=== PATIENT | female | born 1995 | race African-American/Black ===

== ENCOUNTER 2020-01-26 14:14 | Emergency (ER) | payer MEDICAID, OTHER ==
[~2020-01-26] VITALS: Ht 162.6 cm; Wt 2.4 kg
[2020-01-26 14:34] VITALS: BP 109/74
--- NOTE | 2020-01-26 14:51 | NUR ---
ED Nurse Note: Due to the Right knee injury 1.5 years ago, pt. had mechanical fall on 01/12/20. Pt c/o right knee pain and swelling right lower leg.
[2020-01-26] MEDS ORDERED: Ketorolac 30mg Inj IM ONE (15:00)
--- NOTE | 2020-01-26 16:09 | Diagnostic Imaging Report ---
EXAM: XR Right Ankle Complete, 3 or More Views CLINICAL HISTORY: TRAUMA TECHNIQUE: Frontal, lateral and oblique views of the right ankle. COMPARISON: None FINDINGS: Bones/joints: Nondisplaced fracture of the distal right fibula. Ankle mortise is intact. No dislocation. Ankle joint effusion. Soft tissues: Soft tissue swelling. IMPRESSION: Nondisplaced fracture of the distal right fibula.
--- NOTE | 2020-01-26 16:10 | Emergency Room Report ---
History of Present Illness General Chief Complaint: Lower Extremity Injury Source: Patient Present Illness HPI 25-year-old obese female with no significant past medical history here complaining of right ankle pain after a fall that occurred on January 12, 2020. Patient reports that she twisted her ankle and fell on her right ankle has been hurting since. Rates the pain 10 out of 10 without radiation. Denies any tingling or numbness. Reports that she was using her crutches to ambulate however the pain started getting worse today. Has not yet seen her primary doctor. Swelling is noted with ecchymosis. Complains of posterior ankle pain. Denies all other injuries at this time. Patient reports that she has been applying weight to it every day. Denies chest pain, shortness of breath, calf tenderness, pleuritic chest pain, headache and dizziness. Has been taking Aleve with minimal relief. Denies at this time. Allergies: Coded Allergies: No Known Allergies (Unverified , 01/26/20) COVID-19 Screening Contact w/high risk pt: No Recent Travel to affected area: No Experienced COVID-19 symptoms?: No Patient History Past Medical History: see triage record Past Surgical History: none Pertinent Family History: none Now: No Immunizations: UTD Reviewed Nursing Documentation: PMH: Agreed; PSxH: Agreed Nursing Documentation-PMH Past Medical History: No Stated History Review of Systems All Other Systems: negative except mentioned in HPI Physical Exam Vital Signs Date Time Temp Pulse Resp B/P (MAP) Pulse Ox O2 Delivery O2 Flow Rate FiO2 01/26/20 14:34 98.6 108 18 109/74 (86) 98 Room Air Sp02 EP Interpretation: reviewed, normal General Appearance: alert, GCS 15, non-toxic, mild distress, obese Head: normocephalic, atraumatic Eyes: bilateral eye normal inspection, bilateral eye PERRL ENT: hearing grossly normal, normal pharynx, no angioedema, normal voice Neck: full range of motion, supple/symm/no masses Respiratory: chest non-tender, lungs clear, normal breath sounds, speaking full sentences Cardiovascular #1: regular rate, rhythm, no edema Cardiovascular #2: 2+ dorsalis pedis (R), 2+ dorsalis pedis (L) Gastrointestinal: normal bowel sounds, non tender, soft, non-distended, no guarding, no rebound Rectal: deferred Genitourinary: no CVA tenderness Musculoskeletal: back normal, no calf tenderness, tender - Right posterior ankle with swelling noted, questionable Blevins sign Neurologic: alert, motor strength/tone normal, oriented x3, sensory intact, responsive, speech normal Psychiatric: judgement/insight normal, memory normal, mood/affect normal, no suicidal/homicidal ideation Skin: no rash Lymphatic: no adenopathy Procedures Splinting Splinting : Consent: Verbal Location: right ankle Splint: poserior short Pre-Proc Neuro Vasc Exam: normal Post-Proc Neuro Vasc Exam: normal Patient Tolerated: Well Complications: None Progress Crutches were provided Medical Decision Making PA Attestation All diagnoses and treatment plans were reviewed and discussed with my supervising physician Dr. Leon Diagnostic Impression: Primary Impression: Closed fracture of right distal fibula Additional Impression: Achilles tendon injury ER Course 25-year-old obese female with no significant past medical history here complaining of right ankle pain after a fall that occurred on January 12, 2020. Patient reports that she twisted her ankle and fell on her right ankle has been hurting since. Rates the pain 10 out of 10 without radiation. Denies any tingling or numbness. Reports that she was using her crutches to ambulate however the pain started getting worse today. Has not yet seen her primary doctor. Swelling is noted with ecchymosis. Complains of posterior ankle pain. Denies all other injuries at this time. Patient reports that she has been applying weight to it every day. Denies chest pain, shortness of breath, calf tenderness, pleuritic chest pain, headache and dizziness. Has been taking Aleve with minimal relief. Denies at this time. Ddx considered but are not limited to: ankle sprain, ankle strain, ankle fracture, ankle contusion Vital signs: are WNL, pt. is afebrile H&PE are most consistent with: Closed fracture of right distal fibula, possible Achilles tendon injury ORDERS: ankle x-ray, ibuprofen, tyleno #3 ED INTERVENTIONS: toradol IM DISCHARGE: At this time pt. is stable for d/c to home. Will provide printed patient care instructions, and any necessary prescriptions. Care plan and follow up instructions have been discussed with the patient prior to discharge. Patient to follow-up with claims account specialist, possible MRI of ankle may be needed, if worsening symptoms return to the emergency room. Keep splint on until seen by claims account specialist however if extreme pain and pressure underneath the splint with color changes of skin take the splint off and return to the emergency room to avoid compartment syndrome Other X-Ray Diagnostic Results Other X-Ray Diagnostic Results : X-Ray ordered: Right ankle x-ray # of Views/Limited Vs Complete: 3 View Indication: Pain EP Interpretation: Yes PA Xray: Interpretation reviewed, by supervising MD, and agrees with findings. Interpretation: other - Closed fracture right distal fibula Impression: Other - Closed fracture of right distal fibula Electronically Signed by: Charles SIFUENTES Scribe Text IMPRESSION: Nondisplaced fracture of the distal right fibula. Last Vital Signs Date Time Temp Pulse Resp B/P (MAP) Pulse Ox O2 Delivery O2 Flow Rate FiO2 01/26/20 14:34 98.6 108 18 109/74 (86) 98 Room Air Disposition: HOME, SELF-CARE Condition: Stable Scripts Ibuprofen (Ibu) 800 Mg Tablet 800 MG PO TID, #30 TAB Prov: Charles Hernandes 01/26/20 Acetaminophen With Codeine (T#3) (TYLENOL #3 TAB*) Y Tab 1 TAB ORAL Q8HR PRN for For Pain for 3 Days, #10 TAB Prov: Charles Hernandes 01/26/20 Patient Instructions: Ankle Fracture With Rehab-SportsMed Additional Instructions: Take medication as been prescribed, follow-up with claims account specialist, also MRI may be needed of your ankle to rule out Achilles tendon rupture. If worsening symptoms return to the emergency room. Keep the splint on until you see claims account specialist however if you have increased swelling and pain and pressure underneath the splint return to the emergency room. Charles Hernandes January 26, 2020 16:10
[2020-01-26] MEDS ORDERED: IBU800 MG PO (16:11)
[2020-01-26] MEDS ORDERED: ACETAMINOPHEN-1 EAC1 ORAL (16:11)
--- NOTE | 2020-01-26 16:14 | NUR ---
ER DISCHARGE NOTE: Patient is cleared to be discharged per ERMD, pt is aox4, on room air, with stable vital signs. pt was given dc and prescription instructions, pt was able to verbalize understanding, pt id band and iv site removed without complications. pt is able to ambulate with steady gait. pt took all belongings.
== END 2020-01-26 16:14 | disposition home or self-care (01) ==
LOC: EMR 16:00
DX: S82.491A Other fracture of shaft of right fibula, initial encounter for closed fracture (principal); S86.001A Unspecified injury of right Achilles tendon, initial encounter; W19.XXXA Unspecified fall, initial encounter; Y92.9 Unspecified place or not applicable
CPT/HCPCS: 29515; 73610; 96372; J1885; Z7502; 99283